=== PATIENT | male | born 1965 | race Caucasian/White ===

== ENCOUNTER 2018-07-20 12:18 | Observation (INO) | payer OTHER ==
--- NOTE | 2018-07-20 12:54 | ED ---
HPI Chest Pain - HPI Summary HPI Summary: This patient is a 53 year old M brought in by ambulance to [facility] with a chief complaint of intermittent CP accompanied by light headedness for the last 3 days. This morning he states he awoke and felt fine as though the pain was gone. 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 He states he felt so floaty that it caused a lower perceived driving ability. He dropped the passenger off and felt slightly better but then approximately 30 minutes later the pain returned with paresthesia in the fingers, this prompted him to contact EMS. Along with the new sx today the patient states the pain was lasting only a few minutes today where it usually lasts about 30 minutes. The patient rates the pain 1/10 in severity and describes it as a pressure that makes it hard to breath. Patient denies LE edema and pain. Pt does not take any medications and has no medical history expected for slightly elevated cholesterol but is not on med. 324 ASA per EMS. Pt has not had any type of cardiac work up in the past. His mother has had a valve replaced. - History of Current Complaint Time Seen by Provider: 07/20/18 12:45 Hx Obtained From: Patient Onset/Duration: Started Days Ago, Still Present Timing: Intermittent Initial Severity: Mild Current Severity: None Pain Intensity: 1 Pain Scale Used: 0-10 Numeric Chest Pain Location: Diffuse Chest Pain Radiates: No Character: Pressure/Squeezing Aggravating Factor(s): Rest Alleviating Factor(s): Spontaneous Resolution Associated Signs and Symptoms: Positive: Chest Pain, Tingling - Allergy/Home Medications Allergies/Adverse Reactions: Allergies Allergy/AdvReac Type Severity Reaction Status Date / Time No Known Allergies Allergy Verified 08/21/12 20:44 PMH/Surg Hx/FS Hx/Imm Hx Endocrine/Hematology History: Denies: Hx Blood Transfusions, Hx Anemia Cardiovascular History: Reports: Hx Hypercholesterolemia - not on meds Denies: Hx Atrial Fibrillation, Hx Cardiomegaly, Hx Congenital Heart Disease , Hx Coronary Artery Disease, Hx Deep Vein Thrombosis Respiratory History: Denies: Hx Bronchopulmonary Dysplasia, Hx Chronic Obstructive Pulmonary Disease (COPD), Hx Lung Cancer, Hx Pulmonary Edema GI History: Denies: Hx Crohn's Disease Musculoskeletal History: Denies: Hx Back Problems Infectious Disease History: No Infectious Disease History: Denies: Traveled Outside the [place] in Last 30 Days - Family History Known Family History: Positive: Cardiac Disease - no [place] but mother has a valve replacement. Negative: Renal Disease, Respiratory Disease, Seizure Disorder - Social History Alcohol Use: Occasionally Substance Use Type: Reports: None Smoking Status (MU): Former Smoker Review of Systems Positive: Chest Pain Positive: Shortness Of Breath Musculoskeletal: Negative - LE pain Negative: Edema Neurological: Other - light headedness Positive: Paresthesia All Other Systems Reviewed And Are Negative: Yes Physical Exam - Summary Physical Exam Summary: GENERAL: Patient is a well-developed and nourished M who is lying comfortable in the stretcher. Patient is not in any acute respiratory distress. HEAD AND FACE: Normocephalic EYES: PERRLA, EOMI x 2. EARS: Hearing grossly intact. MOUTH: Oropharynx within normal limits. NECK: Supple, trachea is midline, no adenopathy, no JVD, no carotid bruit. CHEST: Symmetric, no tenderness at palpation LUNGS: Clear to auscultation bilaterally. No wheezing or crackles. CVS: Regular rate and rhythm, S1 and S2 present, no murmurs or gallops appreciated. ABDOMEN: Soft, non-tender. Bowel sounds are normal. No abdominal abnormal pulsations. EXTREMITIES: Full ROM in all major joints, no edema, no cyanosis or clubbing. NEURO: Alert and oriented x 3. No acute neurological deficits. Speech is normal and follows commands. SKIN: Dry and warm Triage Information Reviewed: Yes Vital Signs On Initial Exam: Initial Vitals Temp Pulse Resp BP Pulse Ox 98.6 F 67 18 115/79 98 07/20/18 12:44 07/20/18 12:44 07/20/18 12:44 07/20/18 12:44 07/20/18 12:44 Vital Signs Reviewed: Yes Diagnostics - Vital Signs Vital Signs Temp Pulse Resp BP Pulse Ox 07/20/18 12:44 98.6 F 67 18 115/79 98 - Laboratory Result Diagrams: 07/20/18 13:10 07/20/18 13:10 Lab Statement: Any lab studies that have been ordered have been reviewed, and results considered in the medical decision making process. - Radiology CXR Radiology Interpretation Completed By: Radiologist Summary of Radiographic Findings: no active cardiopulmonary disease. ED physician has reviewed this radiology report. - EKG 1328 Cardiac Rate: NL EKG Rhythm: Sinus Rhythm - at 64 BPM Summary of EKG Findings: probable LAE. right ventricle hypertrophy. Chest Pain Course/Dx - Course Course Of Treatment: This patient is a 53 year old M brought in by ambulance to [facility] with a chief complaint of intermittent CP accompanied by light headedness for the last 3 days. Hx HLD. An EKG reveals right ventricle hypertrophy. probable LAE. CXR reveals, per radiologist, no active cardiopulmonary disease. Bloodwork obtained. Pt was given [id number] by EMS. We discussed patient care with Dr Gomes and they accepted the patient for admission. Patient will be admitted to r/o cardiac event. The patient is agreeable with this plan. - Diagnoses Provider Diagnoses: Atypical chest pain - Provider Notifications Discussed Care Of Patient With: Barbara Gomes Time Discussed With Above Provider: 14:33 Instructed by Provider To: Admit As Inpatient Discharge - Sign-Out/Discharge Documenting (check all that apply): Patient Departure - admitted - Discharge Plan Condition: Fair Disposition: ADMITTED TO [facility] - Billing Disposition and Condition Condition: FAIR Disposition: Admitted to [facility] - Attestation Statements Document Initiated by Scribe: Yes Documenting Scribe: Porfirio Locke Provider For Whom Scribe is Documenting (Include Credential): Cecilia Duran MD Scribe Attestation: Porfirio Ellis scribed for Cecilia Duran MD on 07/20/18 at 1727. Scribe Documentation Reviewed: Yes Provider Attestation: The documentation as recorded by the Porfirio hedrick accurately reflects the service I personally performed and the decisions made by meCecilia MD Status of Scribe Document: Viewed
[2018-07-20 13:21] LABS: ABS Basophils 0 10^3/ul (0-0.2); ABS Eosinophils 0.1 10^3/ul (0-0.6); ABS Lymphocytes 1.7 10^3/ul (1.0-4.8); ABS Monocytes 0.6 10^3/ul (0-0.8); ABS Neutrophils 4.9 10^3/ul (1.5-7.7); ABS Nucleated RBC 0 10^3/ul; Eosinophil % 1.9 %; Hematocrit 43 % (42-52); Hemoglobin 14.8 g/dl (14.0-18.0); Lymphocyte % 23.4 %; Mean Corpuscular HGB Conc 34 g/dl (31-36); Mean Corpuscular Hemoglobin 32 pg (27-31); Mean Corpuscular Volume 94 fL (80-94); Mean Platelet Volume 8.9 fL (7.4-10.4); Nucleated Red Blood Cells % 0; Platelet Count 221 10^3/ul (150-450); Red Blood Count 4.63 10^6/ul (4.00-5.40); Red Cell Distribution Width 15 % (10.5-15); White Blood Count 7.4 10^3/ul (3.5-10.8)
[2018-07-20 13:27] LABS: INR 0.94 (0.77-1.02)
[2018-07-20 13:36] LABS: EGFR Non-African American 89.9 (>60)
[2018-07-20] MEDS ORDERED: Al Hydrox/Mg Hydrox/Simet LIQ* 30 ML UDC PO PRN (14:32)
[2018-07-20 14:39] LABS: Urine Appearance Cloudy; Urine Blood Negative (Negative); Urine Color Yellow; Urine Ketones 1+ (Negative); Urine Protein Negative (Negative); Urine Specific Gravity 1.027 (1.010-1.030); Urine Urobilinogen Negative (Negative)
--- NOTE | 2018-07-20 18:15 | HP ---
CC: Dr. Nel Bourne * HISTORY AND PHYSICAL: DATE OF ADMISSION: 07/20/18 PROVIDER: Nida Varela NP PRIMARY CARE PROVIDER: Dr. Nel Bourne. ATTENDING PHYSICIAN WHILE IN THE HOSPITAL: Dr. Barbara Gomes * (dictated by Nida Varela NP). CHIEF COMPLAINT: 1. Chest tightness. 2. Lightheadedness. HISTORY OF PRESENT ILLNESS: Mr. Bustamante is a 53-year-old male patient with no significant past medical history, who reports a 2-day history of chest tightness mid sternal, classifies it as an ache, comes and goes. The patient also reports a mild cough, but no worse than normal. Denies any fever or chills. Denies any nausea or vomiting. 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 He was able to finish his route and felt as though the chest pain was subsiding. 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 At this time, he did feel lightheaded and noted some numbness in bilateral fingers and hands. He felt as though it took more effort to get a deep breath. He denied any diaphoresis or nausea. Due to these symptoms, the ambulance was called and he was brought to the hospital for further evaluation. The patient reports that he has chronic heartburn, which he takes Tums twice a day generally. He denies any nocturnal dyspnea or orthopnea. He denies any chest pain with exertion, walking uphills or walking upstairs. He is able to complete daily activities without shortness of breath or chest pain. He reports that he exercises and does not develop chest pain with exercise. He denies any illnesses. No fever, chills. No nausea, vomiting , or diarrhea. Reports chest pain. Denies any edema. Denies any hemoptysis. He does report more effort to take a breath with the episodes of chest pain, which has subsided at this time. Denies any nausea, vomiting, or diarrhea. Denies any abdominal pain. Denies any gross hematuria or dysuria. Denies any focal weakness or sensory loss. He denies any other complaints. Denies any recent sick contacts. Given his symptoms of chest tightness, we were asked to see and evaluate him for admission. PAST MEDICAL HISTORY: None. PAST SURGICAL HISTORY: He did have skull revision as an . HOME MEDICATIONS: Tums as needed. ALLERGIES TO MEDICATIONS: No known allergies. FAMILY HISTORY: Grandmother and mother with a history of heart disease. Mother with a history of valve replacement at age 59 and hypertension; she is alive at age 81. Grandfather with a history of diabetes. Mother with a history of breast cancer and father with a history of prostate cancer. SOCIAL HISTORY: The patient denies any tobacco. Reports rare alcohol use. Denies any illicit drug use. He is . Surrogate decision maker in the event he is unable to make his own decisions is his , Regla Bustamante. Her phone number is . He is a full code. REVIEW OF SYSTEMS: There was no documented fever. No unintended weight loss. He does report chest pain that is substernal, classifies it as a tightness and ache. It is not reproducible. It is not exacerbated with exertion or exercise. Does report mild occasional cough. Denies any hemoptysis. He does report increased effort to take a deep breath during his episodes of chest pain. Denies any nausea, vomiting, diarrhea. Denies any abdominal pain. Denies any gross hematuria or dysuria. Denies any focal weakness or sensory loss. Denies any visual complaints, or dizziness. Denies any dysphagia. Denies any diaphoresis. Denies any arthralgias or myalgias. Denies any rashes or lesions. Denies any psychosis or anxiety. PHYSICAL EXAMINATION GENERAL: At this time, Mr. Bustamante is a 53-year-old male. He appears well, sitting on the stretcher in the emergency room. He does not appear to be in any acute distress. VITAL SIGNS: Blood pressure 148/98, heart rate was 71, respirations 18, temperature was 98.6, O2 saturation 99% on room air. HEENT: Head is atraumatic, normocephalic. Eyes: EOMs are intact. Sclerae anicteric and not pale. Oral mucosa appeared to be moist. NECK: Supple. LUNGS: Clear to auscultation bilaterally. No wheezes, rales, or rhonchi. CARDIAC: S1, S2. Regular rate and rhythm. No murmurs, rubs, or gallops. ABDOMEN: Soft and nontender. Bowel sounds are present x4. EXTREMITIES: Pulses are +2 bilaterally. No edema. He is able to move all 4 extremities with 5/5 strength. NEUROLOGIC: He is awake, alert, and oriented x3. Speech is clear. Thought process intact. There are no gross neuro deficits noted. SKIN: Intact. DIAGNOSTIC STUDIES/LAB DATA: WBCs were 7.4, RBCs 4.63, hemoglobin 14.8, hematocrit was 43, platelet count was 221. INR was 0.94, APTT was 30.3, D- dimer was less than 200. Sodium 136, potassium 3.9, chloride 104, carbon dioxide was 26, anion gap was 6, BUN was 24, creatinine 0.88, glucose was 96, lactic acid was 0.8, calcium 9.3. Total bilirubin 1.2. Magnesium 2.2. Troponin was 0.00, BNP was 10. Urine was within normal limits with the exception of urine ketones were 1+. He had a chest x-ray on 07/20/18. Radiologist's impression: No active cardiopulmonary disease. He had an electrocardiogram on 07/20/18, which showed sinus rhythm at a rate of 64. ASSESSMENT AND PLAN: Mr. Bustamante is a 53-year-old male with no significant past medical history, who presented to the emergency room today for evaluation of chest tightness. He will be admitted under observation for: 1. Chest tightness, rule out acute coronary syndrome. He will have exercise nuclear stress test tomorrow. We will monitor on telemetry. He did receive aspirin 324 mg by EMS prior to arrival. We will continue to trend troponins. His troponin is currently 0.00 x2. We will get a lipid profile in the morning. The patient's ANA score is 2 giving him an 8% risk at 14 days of all-cause mortality of new or recurrent myocardial infarctions or severe recurrent ischemia requiring revascularization. 2. Gastroesophageal reflux disease. He can have Maalox as needed for heartburn. 3. FEN: He can have a heart-healthy, decaf okay diet. 4. DVT prophylaxis: We will encourage ambulation. 5. Code status: He is a full code. TIME SPENT: Time spent on this admission was 60 minutes, greater than half that time was spent [id number] with the patient and his obtaining my history and physical, the other half of the time was spent doing my physical exam and implementing my plan of care. I have discussed this with my attending, Dr. Barbara Gomes; she is in agreement with my plan. NIDA VARELA, DRAMA TEACHER [id number]/[facility] #: [id number] DAMIAN
[2018-07-21 05:47] LABS: ABS Basophils 0.1 10^3/ul (0-0.2); ABS Eosinophils 0.3 10^3/ul (0-0.6); ABS Monocytes 0.8 10^3/ul (0-0.8); ABS Neutrophils 6.5 10^3/ul (1.5-7.7); ABS Nucleated RBC 0 10^3/ul; Eosinophil % 3.3 %; Hematocrit 42 % (42-52); Hemoglobin 14.1 g/dl (14.0-18.0); Lymphocyte % 20.6 %; Mean Corpuscular HGB Conc 33 g/dl (31-36); Mean Corpuscular Hemoglobin 31 pg (27-31); Mean Corpuscular Volume 94 fL (80-94); Nucleated Red Blood Cells % 0.2; Platelet Count 209 10^3/ul (150-450); Red Blood Count 4.49 10^6/ul (4.00-5.40); Red Cell Distribution Width 15 % (10.5-15); White Blood Count 9.7 10^3/ul (3.5-10.8)
[2018-07-21 06:09] LABS: EGFR Non-African American 87.6 (>60)
[2018-07-21 11:48] VITALS: BP 94/59
--- NOTE | 2018-07-23 04:36 | DS ---
cC: Dr. Nel Bourne * DISCHARGE SUMMARY: DATE OF ADMISSION: 07/20/18 DATE OF DISCHARGE: 07/21/18 PRIMARY CARE PROVIDER: Dr. Nel Bourne. MY ATTENDING WHILE IN THE HOSPITAL: Dr. Heredia.* (DICTATED BY BARBARA ATKINSON) PRIMARY DISCHARGE DIAGNOSIS: Chest pain, rule out myocardial infarction. SECONDARY DISCHARGE DIAGNOSIS: None. STUDIES DONE WHILE IN THE HOSPITAL: Chest x-ray, 07/20/18, read as no active cardiopulmonary disease. Electrocardiogram on 07/20/18 was unremarkable. Cardiac stress test, non-nuclear portion read as maximum exercise stress test, no complaint of chest pain, no concerning changes to suggest ischemia. Nuclear medicine scan read as no fixed or reversible perfusion defects, EF 75%, normal wall motion, low risk. MEDICATIONS AT DISCHARGE: Maalox 30 mL p.o. q.6 hours as needed. HOSPITAL COURSE: This is a brief summary of the patient's presentation. For more details, please see history and physical from Nida Varela NP, on . 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 He denies mario palpitations. He continued to drive for a little while and began to feel very panicky. At that point, he began to have numbness and tingling in his hands and feet. He also felt as if he was slightly short of breath. The patient had no recent illnesses. The patient engages in moderate intensity exercises and never had chest pain before. The patient did not pass out. The patient has not had an episode like this before or before 2 days ago. The patient has a chronic cough. The patient came into the emergency department, had 3 negative troponins. The patient's LDL cholesterol was elevated. The patient did not have a hemoglobin A1c drawn. The patient had no other laboratory abnormalities. The patient was asymptomatic overnight. Had a nuclear medicine stress test as above. It was discussed with the patient that given his symptoms, this may represent unstable angina and that aspirin and Lipitor were recommended for primary prevention of ND; however, he states that he would prefer to discuss this with his outpatient primary care physician first, so these were not prescribed at discharge. The patient discussed near the end of his hospitalization that he had a brother who was recently diagnosed with a heart disease during the evaluation of syncope and his heart disease was described in a manner consistent with hypertrophic cardiomyopathy and the patient asked about this. The patient did not have an echocardiogram performed while he was inpatient; however, his EKG and stress test showed no signs of left ventricular hypertrophy and no ischemia within the septum, both of which would be consistent with hypertrophic cardiomyopathy; however, it discussed with the patient that if it is confirmed from his brother that he has hypertrophic cardiomyopathy, an outpatient echocardiogram to evaluate his risk would be indicated, as he is a first-degree relative. The patient was stable and amenable for discharge on 07/22/18. PHYSICAL EXAMINATION ON THE DAY OF DISCHARGE: General: The patient is a 53- year- old male who appears stated age, sitting comfortably in bed, in no acute distress. HEENT: Head: Normocephalic, atraumatic. Sclerae anicteric. No conjunctival injection. Nasal mucosa is moist. Oral mucosa is moist. No pharyngeal erythema, discharge, or exudate. Vital Signs: At the time of discharge, temperature 97.9, pulse rate 63, respiratory rate 16, oxygen saturation 100% on room air, blood pressure 94/59. Cardiac: Regular rate and rhythm. No clicks, murmurs, gallops, or rubs. Pulses are 2+ in the bilateral dorsalis pedis, posterior tibialis, and radial areas. Respiratory: Clear to auscultation bilaterally. No wheezes, rales, or rhonchi. Good air exchange bilaterally. Abdomen: Soft, nontender, nondistended. Bowel sounds present. Normoactive in all 4 quadrants. No hepatosplenomegaly. No abdominal bruits auscultated. No hepatojugular reflux. Genitourinary: No suprapubic or CVA tenderness. Skin: Clean, dry, intact. No rash. Neuro: Cranial nerves II through XII intact. No focal deficits. Alert and oriented x3. Psychiatric: Pleasant and cooperative. DISCHARGE PLAN: The patient will be discharged to home. The patient is to follow up with his primary care provider in 1 week to discuss management of continued strategies for primary prevention of ND. The patient has hyperlipidemia and a statin was recommended to him given his chest pain, as was aspirin. The patient should discuss with his brother his definitive diagnosis and if it is indeed hypertrophic cardiomyopathy, the patient should have an outpatient echocardiogram to assess his phenotypical expression of hypertrophic cardiomyopathy. There should also be a consideration given to a long-term heart monitor, particularly if the patient has recurrent symptoms, as this may represent an uncaptured arrhythmia. The patient should have a heart-healthy diet and avoid caffeine. The patient should increase activity as tolerated. The patient should be routinely screened for diabetes per general recommendations. TIME SPENT: Approximately 45 minutes was spent on the discharge of this patient , 30 of which was spent [id number] with the patient obtaining history and physical and discussing treatment plan. BARBARA ATKINSON [id number]/[facility] #: [id number] DAMIAN
== END 2018-07-21 13:50 | disposition home or self-care (01) ==
LOC: ED 12:18 → MEDTELE 14:32
PROVIDERS: ADMIT Internal Medicine; ATTEND Internal Medicine
DX: R07.89 Other chest pain (principal); R42 Dizziness and giddiness; R05 Cough; K21.9 Gastro-esophageal reflux disease without esophagitis; Z87.891 Personal history of nicotine dependence; R06.02 Shortness of breath; R20.0 Anesthesia of skin
CPT/HCPCS: 36415; 71045; 78452; 80048; 80053; 80061; 81003; 82553; 83605; 83735; 83880; 84484; 85025; 85379; 85610; 85730; 93005; 93017; 99283; A9502; G0378

== ENCOUNTER 2019-04-22 20:51 | Emergency (ER) | payer OTHER ==
[2019-04-22 21:00] VITALS: BP 119/80
--- NOTE | 2019-04-22 21:24 | UC ---
Skin Complaint HPI - HPI Summary HPI Summary: 53-year-old male comes in with a chief complaint of left elbow pain after being poked by a [place] thorn today while working at home. He feels the thorn was in about a quarter of an inch. As far as he knows is no foreign body in there. He continued working for several hours. He did wash it out initially. This evening the pain has started to increase and now it hurts to extend his elbow or pronate or supinate. No redness no fevers no chills. - History of Current Complaint Chief Complaint: UCUpperExtremity Time Seen by Provider: 04/22/19 21:02 Stated Complaint: L ARM PAIN Pain Intensity: 5 - Allergy/Home Medications Allergies/Adverse Reactions: Allergies Allergy/AdvReac Type Severity Reaction Status Date / Time No Known Allergies Allergy Verified 04/22/19 21:00 Home Medications: Home Medications Calcium Carbonate [Antacid] 04/22/19 [History] PMH/Surg Hx/FS Hx/Imm Hx Previously Healthy: Yes - Surgical History Surgical History: Yes Surgery Procedure, Year, and Place: SKULL SURGERY A [facility]ABY - Family History Known Family History: Positive: Cardiac Disease - no NH but mother has a valve replacement. Negative: Renal Disease, Respiratory Disease, Seizure Disorder - Social History Alcohol Use: Rare Substance Use Type: None Smoking Status (MU): Former Smoker - Immunization History Most Recent Influenza Vaccination: has not had one Most Recent Pneumonia Vaccination: has not had one Review of Systems All Other Systems Reviewed And Are Negative: Yes Constitutional: Positive: Other - see hpi Skin: Positive: Other - see hpi Eyes: Positive: Negative ENT: Positive: Negative Respiratory: Positive: Negative Cardiovascular: Positive: Negative Gastrointestinal: Positive: Negative Genitourinary: Positive: Negative Motor: Positive: Decreased ROM Neurovascular: Positive: Negative Musculoskeletal: Positive: Other: - see hpi Neurological: Positive: Negative Psychological: Positive: Negative Is Patient Immunocompromised?: No Physical Exam Triage Information Reviewed: Yes Appearance: Well-Appearing, Well-Nourished, Pain Distress - mild with left elbow rom Vital Signs: Initial Vital Signs Temp 98.1 F 04/22/19 20:55 Pulse 74 04/22/19 20:55 Resp 16 04/22/19 20:55 BP 119/80 04/22/19 20:55 Pulse Ox 99 04/22/19 20:55 Vital Signs Reviewed: Yes Eye Exam: Normal Eyes: Positive: Conjunctiva Clear Neck: Positive: Supple Respiratory: Positive: No respiratory distress Musculoskeletal: Positive: Other: - Patient holds left elbow against his body at 90 flexion. He is able to supinate and pronate although with pain. No erythema or warmth found of the joints no streaking. Normal radial pulses normal capillary refill no sensation deficits. Full range of motion of the fingers wrists and shoulder. Neurological: Positive: Alert Psychological: Positive: Age Appropriate Behavior Skin: Positive: Other - Left elbow has a puncture wound with no obvious foreign body felt on palpation no erythema no streaking. Course/Dx - Course Course Of Treatment: I discussed the x-rays with the patient and his . I do not see any foreign body. Radiologist reading is pending. Concern for early infection due to the amount of pain in the area. Treating with Keflex 500 mg by mouth 4 times a day. We discussed the possibility of a deep infection and if it involves the joint. Needs to be evaluated by and cared for right away. If the patient's condition worsens at all we discussed going to the emergency department for further evaluation and care. - Diagnoses Provider Diagnosis: Puncture wound of elbow, left Discharge ED - Sign-Out/Discharge Documenting (check all that apply): Patient Departure All imaging exams completed and their final reports reviewed: No - Discharge Plan Condition: Stable Disposition: HOME Patient Education Materials: Puncture Wound (ED) Referrals: Yajaira Delatorre MD [Medical Doctor] - Additional Instructions: FOLLOW UP WITH ORTHOPEDICS IF NOT COMPLETELY IMPROVED. GO TO THE EMERGENCY DEPARTMENT IF YOUR CONDITION WORSENS; PAIN, FEVER, YOU FEEL ILL OR ANY QUESTIONS OR CONCERNS. - Billing Disposition and Condition Condition: STABLE Disposition: Home
[2019-04-22] MEDS ORDERED: Cephalexin CAP* 500 MG PO ONE (21:31)
[2019-04-22] MEDS ORDERED: Tetan/Diph/Pertus SYR(Tdap)* 0.5 ML SYR(BOOSTRIX) use SYR IM ONE (21:51)
--- NOTE | 2019-04-23 08:59 | UC ---
- Progress Note Progress Note: wet read correct Course/Dx - Diagnoses Provider Diagnoses: Puncture wound of elbow, left Discharge ED - Sign-Out/Discharge Documenting (check all that apply): Post-Discharge Follow Up All imaging exams completed and their final reports reviewed: Yes - Discharge Plan Condition: Stable Disposition: HOME Prescriptions: Cephalexin CAP* [Keflex CAP*] 500 mg PO QID #[id number] cap Patient Education Materials: Puncture Wound (ED) Referrals: Yajaira Delatorre MD [Medical Doctor] - Additional Instructions: FOLLOW UP WITH ORTHOPEDICS IF NOT COMPLETELY IMPROVED. GO TO THE EMERGENCY DEPARTMENT IF YOUR CONDITION WORSENS; PAIN, FEVER, YOU FEEL ILL OR ANY QUESTIONS OR CONCERNS. - Billing Disposition and Condition Condition: STABLE Disposition: Home
== END 2019-04-22 22:07 | disposition home or self-care (01) ==
LOC: UCEAST 20:51
DX: S51.032A Puncture wound without foreign body of left elbow, initial encounter (principal); W22.8XXA Striking against or struck by other objects, initial encounter; Y92.017 Garden or yard in single-family (private) house as the place of occurrence of the external cause; Z23 Encounter for immunization; Z87.891 Personal history of nicotine dependence
CPT/HCPCS: 90471; 90715; 99212; A9270-GY; G0463